=== PATIENT | female | born 1975 | race Caucasian/White ===

== ENCOUNTER → 2016-07-23 | Outpatient (CLI) | payer BC | LOC: MC.RAD 12:53 | DX: Z12.31 Encounter for screening mammogram for malignant neoplasm of breast (principal) ==

== ENCOUNTER → 2017-08-18 | Outpatient (CLI) | payer BC | LOC: MC.RAD 10:46 | DX: Z12.31 Encounter for screening mammogram for malignant neoplasm of breast (principal) ==

== ENCOUNTER → 2018-04-13 | Outpatient (CLI) | payer BC ==
[~2018-04-13] VITALS: Ht 162.6 cm; Wt 74.8 kg
[~2018-04-13] MED LIST: CLARITIN 1010 MG/TAB PO; HCTZ 25MG TAB25 MG PO; NORVASC 10MG10 MG PO; OMEGA-31 SGL PO
[2018-04-13 08:02] VITALS: BP 168/90; PULSE 64
== END ==
LOC: LIGHT 07:41
DX: I10 Essential (primary) hypertension (principal); E78.5 Hyperlipidemia, unspecified; K21.9 Gastro-esophageal reflux disease without esophagitis; E66.3 Overweight; Z68.28 Body mass index [BMI] 28.0-28.9, adult; Z71.3 Dietary counseling and surveillance
CPT/HCPCS: G0463

== ENCOUNTER → 2018-05-01 | Outpatient (CLI) | payer BC | LOC: LIGHT 09:44 | DX: I10 Essential (primary) hypertension (principal); E78.5 Hyperlipidemia, unspecified; K21.9 Gastro-esophageal reflux disease without esophagitis; E66.3 Overweight; Z68.28 Body mass index [BMI] 28.0-28.9, adult; Z71.3 Dietary counseling and surveillance ==

== ENCOUNTER → 2018-06-15 | Outpatient (CLI) | payer BC ==
[~2018-06-15] VITALS: Ht 162.6 cm; Wt 76.0 kg
[~2018-06-15] MED LIST changes: +TOPROL XL 25MG25 MG PO
[2018-06-15 08:23] VITALS: BP 120/84; PULSE 80
== END ==
LOC: LIGHT 05-25 12:37
DX: I10 Essential (primary) hypertension (principal); E78.5 Hyperlipidemia, unspecified; E66.3 Overweight; Z68.28 Body mass index [BMI] 28.0-28.9, adult; Z71.3 Dietary counseling and surveillance
CPT/HCPCS: G0463

== ENCOUNTER → 2018-07-27 | Outpatient (CLI) | payer BC ==
[~2018-07-27] VITALS: Ht 162.6 cm; Wt 76.4 kg
[2018-07-27 10:40] VITALS: BP 126/70; PULSE 64
== END ==
LOC: LIGHT 08:52
DX: I10 Essential (primary) hypertension (principal); E78.5 Hyperlipidemia, unspecified; E66.9 Obesity, unspecified; Z68.28 Body mass index [BMI] 28.0-28.9, adult; Z71.3 Dietary counseling and surveillance
CPT/HCPCS: G0463

== ENCOUNTER → 2018-08-31 | Outpatient (CLI) | payer BC ==
[~2018-08-31] VITALS: Ht 162.6 cm; Wt 74.2 kg
[2018-08-31 13:18] VITALS: BP 122/82; PULSE 80
== END ==
LOC: LIGHT 12:50
DX: I10 Essential (primary) hypertension (principal); E78.5 Hyperlipidemia, unspecified; K21.9 Gastro-esophageal reflux disease without esophagitis; E66.3 Overweight; Z68.28 Body mass index [BMI] 28.0-28.9, adult; Z71.3 Dietary counseling and surveillance
CPT/HCPCS: G0463

== ENCOUNTER → 2018-09-29 | Outpatient (CLI) | payer BC | LOC: MC.RAD 10:41 | DX: Z12.31 Encounter for screening mammogram for malignant neoplasm of breast (principal) ==

== ENCOUNTER → 2018-10-12 | Outpatient (CLI) | payer BC ==
[~2018-10-12] VITALS: Ht 162.6 cm; Wt 73.5 kg
[~2018-10-12] MED LIST changes: +PHENTERMINE15 MG PO
[2018-10-12 13:50] VITALS: BP 126/88; PULSE 64
== END ==
LOC: LIGHT 13:36
DX: I10 Essential (primary) hypertension (principal); E78.5 Hyperlipidemia, unspecified; K21.9 Gastro-esophageal reflux disease without esophagitis; E66.3 Overweight; Z68.27 Body mass index [BMI] 27.0-27.9, adult; Z71.3 Dietary counseling and surveillance
CPT/HCPCS: G0463

== ENCOUNTER → 2018-11-30 | Outpatient (CLI) | payer BC ==
[~2018-11-30] VITALS: Ht 162.6 cm; Wt 71.4 kg
[~2018-11-30] MED LIST changes: +LEADER FIBER1 POW PO; +PROBIOTIC ACID1 EAC3 PO
[2018-11-30 11:07] VITALS: BP 126/84; PULSE 64
== END ==
LOC: LIGHT 10:47
DX: I10 Essential (primary) hypertension (principal); E78.5 Hyperlipidemia, unspecified; K21.9 Gastro-esophageal reflux disease without esophagitis; E66.3 Overweight; Z68.27 Body mass index [BMI] 27.0-27.9, adult; Z71.3 Dietary counseling and surveillance
CPT/HCPCS: G0463

== ENCOUNTER → 2019-01-18 | Outpatient (CLI) | payer BC ==
[~2019-01-18] VITALS: Ht 162.6 cm; Wt 71.2 kg
[~2019-01-18] MED LIST changes: +SAXENDA6 MG/ML SQ
[2019-01-18 10:28] VITALS: BP 126/80; PULSE 76
== END ==
LOC: LIGHT 10:06
DX: I10 Essential (primary) hypertension (principal); E78.5 Hyperlipidemia, unspecified; K21.9 Gastro-esophageal reflux disease without esophagitis; E66.3 Overweight; Z68.27 Body mass index [BMI] 27.0-27.9, adult; Z71.3 Dietary counseling and surveillance
CPT/HCPCS: G0463

== ENCOUNTER → 2019-04-12 | Outpatient (CLI) | payer BC ==
[~2019-04-12] VITALS: Ht 162.6 cm; Wt 71.0 kg
[2019-04-12 16:53] VITALS: BP 136/86; PULSE 60
== END ==
LOC: LIGHT 02-22 10:18
DX: I10 Essential (primary) hypertension (principal); E78.5 Hyperlipidemia, unspecified; K21.9 Gastro-esophageal reflux disease without esophagitis; E66.3 Overweight; Z68.26 Body mass index [BMI] 26.0-26.9, adult; Z71.3 Dietary counseling and surveillance
CPT/HCPCS: G0463

== ENCOUNTER → 2019-10-30 | Outpatient (CLI) | payer BC | LOC: MC.RAD 09:13 | DX: Z12.31 Encounter for screening mammogram for malignant neoplasm of breast (principal) ==

== ENCOUNTER → 2020-10-30 | Outpatient (CLI) | payer BC | LOC: MC.RAD 12:56 | DX: Z12.31 Encounter for screening mammogram for malignant neoplasm of breast (principal) ==

== ENCOUNTER → 2024-03-07 | Outpatient (CLI) | payer BC | LOC: MC.RAD 07:42 | DX: Z12.31 Encounter for screening mammogram for malignant neoplasm of breast (principal) ==